=== PATIENT | male | born 1965 | race Caucasian/White ===

== ENCOUNTER 2020-06-23 19:50 | Outpatient (CLI) | payer OTHER, SELFPAY ==
[2020-06-24 11:47] LABS: HBSAg Index 0.15 S/CO (0-0.99); HIV (1/2) Antibody/Antigen Non-Reactive (NonReactive); HIV 1/2 INDEX 0.31 S/CO (<1.00); Hep B Surf Ag Non-Reactive S/CO (NonReactive); Hep C IgG Ab Non-Reactive (NonReactive); Hep C Index 0.15 S/CO (0-0.79)
== END 2020-06-23 19:51 | disposition home or self-care (01) ==
LOC: MADLAB 19:50
PROVIDERS: ATTEND Emergency Medicine
DX: Z11.59 Encounter for screening for other viral diseases (principal)
CPT/HCPCS: 36415; 86703; 86803; 87340; 87389

== ENCOUNTER 2020-07-06 20:13 | Emergency (ER) | payer SELFPAY ==
[2020-07-06] MEDS ORDERED: Sodium Chloride 0.9% 1,000 ML ONE ×3 (20:53→23:07)
[2020-07-06 21:04] LABS: Base Excess-Venous 0.3 mmol/L (-2.0 to 3.0); Bicarbonate (HCO3v) 25.7 mmol/L (22.0-28.0); CO2 Tension (PvCO2) 43.4 mmHg (40.0-50.0); Calcium, Ionized 1.31 mmol/L (See Comments:); Chloride 99 mmol/L (98-107); Hemoglobin - Calc 14.2 g/dL (14.0-18.0); Potassium 4.6 mmol/L (3.5-5.1); Sodium 134 mmol/L (138-145); vO2 Saturation-calc 84.6 % (60.0-85.0)
[2020-07-06 21:28] LABS: Bilirubin Negative (Negative); Blood, Urine Trace (Negative); Clarity Clear (Clear); Glucose, Urine (Dipstick) >=1000 mg/dL (Negative); Ketone, Urine Negative (Negative); Leukocyte Negative (Negative); Nitrite Negative (Negative); Protein, Urine (Dipstick) Negative (Neg-Trace); Specific Gravity, Urine 1.015 (1.005-1.030); Urobilinogen 0.2 mg/dL (Less than 2)
[2020-07-06 21:32] LABS: Hemoglobin 13.9 g/dL (14.0-18.0); Mean Corpuscular Hemoglobin 29.9 pg (27.0-31.0); Mean Corpuscular Volume 86.4 fL (78.0-98.0); Red Blood Cell (RBC) Count 4.64 mill/uL (4.70-6.10); White Blood Cell (WBC) Count 7.6 thou/uL (4.8-10.8)
[2020-07-06 21:33] LABS: #Basophils 0.1 thou/uL (0.0-0.2); #Eosinphils 0.1 thou/uL (0.0-0.7); #Lymphocytes 1.8 thou/uL (1.20-3.40); #Monocytes 0.4 thou/uL (0.11-0.59); #Neutrophils 5.2 thou/uL (1.40-6.50); %Basophils 0.9 % (0.0-1.0); %Lymphocytes 23.3 % (21.0-51.0); %Monocytes 5.6 % (0.0-10.0); %Neutrophils 69.2 % (42.0-75.0); Manual Diff?? NO; Mean Corpuscular HGB CONC 34.7 g/dL (32.0-36.0); Mean Platelet Volume 7.5 fL (7.4-10.4); Platelet Count 313 thou/uL (130-400); RBC Distribution Width 10.3 % (11.5-14.5)
[2020-07-06 21:35] LABS: Bacteria/HPF None Seen HPF (None Seen); Mucous/LPF Rare LPF (<2+); RBC/HPF 0-3 HPF (0-3); Squamous Epithelial None Seen HPF (0-3); WBC/HPF None Seen HPF (0-3)
[2020-07-06 21:35] LABS: Carbon Dioxide 23 mmol/L (22-29); Chloride 99 mmol/L (98-107); Potassium 4.5 mmol/L (3.5-5.1); Sodium 133 mmol/L (136-145)
[2020-07-06 21:36] LABS: Anion Gap 16 mmol/L (10-20); BUN (Urea Nitrogen) 22 mg/dL (8.4-25.7); Calc. Creatinine Clearance 0 mL/min (70-130); Estimated GFR-MDRD 39
[2020-07-06 21:38] LABS: ALT (SGPT) 13 U/L (8-55); AST (SGOT) 7 U/L (5-34); Albumin 3.6 g/dL (3.5-5.0); Alkaline Phosphatase 170 U/L (40-110); Bilirubin, Total 0.3 mg/dL (0.2-1.2); Calcium 9.3 mg/dL (7.8-10.44); Globulin 2.9 g/dL (2.4-3.5); Glucose 604 mg/dL (70-105); Magnesium 1.8 mg/dL (1.6-2.6); Protein, Total 6.5 g/dL (6.0-8.3)
[2020-07-06] MEDS ORDERED: Insulin Regular 300 UNITS/3 ML VIAL ONE (23:07)
== END 2020-07-07 01:16 | disposition home or self-care (01) ==
LOC: MADERS 20:13
DX: E11.65 Type 2 diabetes mellitus with hyperglycemia (principal); I10 Essential (primary) hypertension; Z87.891 Personal history of nicotine dependence; Z79.82 Long term (current) use of aspirin; Z79.4 Long term (current) use of insulin; Z79.899 Other long term (current) drug therapy
CPT/HCPCS: 36416; 80053; 81003; 81015; 82330; 82803; 83735; 85025; 96361; 96374; J1815; J7050

== ENCOUNTER 2025-06-29 07:55 | Outpatient (CLI) | payer OTHER ==
[2025-06-29 09:17] LABS: #Basophils 0.1 thou/uL (0.0-0.2); #Eosinophils 0.3 thou/uL (0.0-0.7); #Lymphocytes 1.9 thou/uL (1.20-3.40); #Monocytes 0.3 thou/uL (0.11-0.59); #Neutrophils 3.5 thou/uL (1.40-6.50); %Basophils 1.2 % (0.0-1.0); %Eosinophils 4.3 % (0.0-10.0); %Lymphocytes 31.2 % (21.0-51.0); %Monocytes 5.0 % (0.0-10.0); %Neutrophils 58.3 % (42.0-75.0); Hematocrit 30.0 % (42.0-52.0); Hemoglobin 10.3 g/dL (14.0-18.0); Mean Corpuscular Hemoglobin 31.2 pg (27.0-31.0); Mean Corpuscular Volume 91.5 fl (78.0-98.0); Platelet Count 246 10x3/uL (130-400); Red Blood Cell (RBC) Count 3.28 mill/uL (4.70-6.10); White Blood Cell (WBC) Count 6.0 10x3/uL (4.8-10.8)
[2025-06-29 09:33] LABS: Anion Gap 13 mmol/L (10-20); BUN (Urea Nitrogen) 22 mg/dL (8.4-25.7); Calc. Creatinine Clearance 0 mL/min (70-130); Calcium 8.4 mg/dL (7.8-10.44); Carbon Dioxide 27 mmol/L (22-29); Chloride 106 mmol/L (98-107); Glucose 111 mg/dL (70-105); Potassium 3.7 mmol/L (3.5-5.1); Sodium 142 mmol/L (136-145)
== END 2025-06-29 07:56 | disposition home or self-care (01) ==
LOC: MADLAB 07:55
PROVIDERS: ATTEND Nurse Practitioner Primary Care
DX: E11.65 Type 2 diabetes mellitus with hyperglycemia (principal)
CPT/HCPCS: 80048; 83036; 85025

== ENCOUNTER 2025-09-08 21:49 | Outpatient (CLI) | payer OTHER ==
[2025-09-08 22:18] LABS: #Basophils 0.1 thou/uL (0.0-0.2); #Eosinophils 0.5 thou/uL (0.0-0.7); #Lymphocytes 1.3 thou/uL (1.20-3.40); #Monocytes 0.3 thou/uL (0.11-0.59); #Neutrophils 4.6 thou/uL (1.40-6.50); %Basophils 1.0 % (0.0-1.0); %Eosinophils 6.8 % (0.0-10.0); %Lymphocytes 19.6 % (21.0-51.0); %Monocytes 4.8 % (0.0-10.0); %Neutrophils 67.8 % (42.0-75.0); ALT (SGPT) 59 U/L (Less than 45); AST (SGOT) 42 U/L (11-34); Albumin 2.9 g/dL (3.1-4.5); Alkaline Phosphatase 98 U/L (40-110); Anion Gap 17 mmol/L (10-20); BUN (Urea Nitrogen) 27 mg/dL (8.4-25.7); Bilirubin, Total 0.3 mg/dL (0.3-1.2); Calc. Creatinine Clearance 0 mL/min (70-130); Calcium 8.5 mg/dL (7.8-10.44); Carbon Dioxide 25 mmol/L (22-29); Chloride 103 mmol/L (98-107); Globulin 2.9 g/dL (2.4-3.5); Glucose 205 mg/dL (70-105); Hematocrit 38.4 % (42.0-52.0); Hemoglobin 12.6 g/dL (14.0-18.0); Mean Corpuscular Hemoglobin 30.4 pg (27.0-31.0); Mean Corpuscular Volume 92.8 fl (78.0-98.0); Platelet Count 233 10x3/uL (130-400); Potassium 4.1 mmol/L (3.5-5.1); Red Blood Cell (RBC) Count 4.13 mill/uL (4.70-6.10); Sodium 141 mmol/L (136-145); White Blood Cell (WBC) Count 6.7 10x3/uL (4.8-10.8)
== END 2025-09-08 21:50 | disposition home or self-care (01) ==
LOC: MADLAB 21:49
PROVIDERS: ATTEND Nurse Practitioner Primary Care
DX: E87.1 Hypo-osmolality and hyponatremia (principal); G93.40 Encephalopathy, unspecified; E46 Unspecified protein-calorie malnutrition
CPT/HCPCS: 80053; 85025